=== PATIENT | female | born 2000 | race Caucasian/White ===

== ENCOUNTER 2022-10-18 19:49 | Emergency (ER) | payer OTHER ==
[~2022-10-18] VITALS: Ht 157.5 cm; Wt 74.8 kg
[2022-10-18 20:10] VITALS: BP 105/75
--- NOTE | 2022-10-18 20:13 | NUR ---
to lobby a/w bed ambulatory
== END 2022-10-18 22:30 | disposition left against medical advice (07) ==
LOC: MED 19:49
DX: R10.9 Unspecified abdominal pain (principal); Z53.21 Procedure and treatment not carried out due to patient leaving prior to being seen by health care provider
CPT/HCPCS: 99281